=== PATIENT | male | born 1985 | race Caucasian/White ===

== ENCOUNTER 2021-11-22 08:04 | Emergency (ER) | payer OTHER, SELFPAY ==
[2021-11-22 08:11] VITALS: BP 148/96; PULSE 68; RESP 18; TEMP 36.6; O2SAT 98
--- NOTE | 2021-11-22 08:15 | ED.URI ---
HPI - URI/Sore Throat General Chief Complaint: Upper Respiratory Infection Stated Complaint: Sinus Pain/Cough Time Seen by Provider: 11/22/21 08:15 Source: patient, RN notes reviewed and old records reviewed Mode of arrival: ambulatory Limitations: no limitations History of Present Illness HPI Narrative: 36 year old male who presents to [facility] care with complaints of 2.5 weeks of sinus congestion, sinus pressure, yellow greenish drainage, some headache discomfort. He states that he had a migraine when his symptoms first started that lasted a day then he proceeded to develop sinus symptoms. Patient states that cough is mainly in the morning. Patient reports that he has been taking some Sudafed for his symptoms with no improvement. He reports that he has had COVID immunizations and Flu shot this season.Patient states that he has also been taking DayQuil and NyQuil for his symptoms. He took a home COVID test yesterday which was negative. MD elicited complaint: nasal congestion Pertinent past history: sinusitis Onset (ago): week(s) (2.5 weeks) Consistency: progressively worsening Related Data Home Medications Medication Instructions Recorded Confirmed atorvastatin 40 mg PO DAILY 11/22/21 11/22/21 testosterone cypionate 100 mg IM MONTHLY 11/22/21 11/22/21 topiramate 50 mg PO DAILY 11/22/21 11/22/21 Allergies Allergy/AdvReac Type Severity Reaction Status Date / Time Sulfa (Sulfonamide Allergy Intermediate Redness of Verified 11/22/21 08:21 Antibiotics) Skin Review of Systems Review of Systems: CONSTITUTIONAL: Denies fever, chills, or sweats. EYES: Denies visual changes, redness, or discharge. ENT: Positive for rhinorrhea, congestion, sore throat, or otalgia.sinus pressure CARDIOVASCULAR: Denies chest pain, palpitations, or edema. RESPIRATORY: Positive for cough denies dyspnea. GASTROINTESTINAL: Denies abdominal pain, nausea, vomiting, or diarrhea. GENITOURINARY: Denies dysuria or hematuria. SKIN: Denies rash or itching. MUSCULOSKELETAL: Denies back pain, joint pain, or myalgia. NEUROLOGIC: Positive for frontal head pressure, no numbness, or weakness. PSYCHIATRIC: Denies anxiety or depression. 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 There is no relevant family history pertinent to the presenting complaint Exam Narrative: GENERAL: Well-appearing, well-nourished, and in no acute distress. HEAD: Normocephalic, atraumatic. EYES: PERRLA and EOMI. ENT: Nares red with turbinates swollen, yellow tinged rhinorrhea no epistaxis. Mucous membranes moist.TM's normal with good light reflex, throat red with no lesions or exudates, no tonsil swelling. NECK: Supple.no lymphadenopathy CHEST: Clear to auscultation. No respiratory distress.SAO2 98% on room air HEART: Regular rate and rhythm. No murmur heard. Normal peripheral pulses. ABDOMEN: Soft, nontender, nondistended, normal active bowel sounds. EXTREMITIES: Normal range of motion. No edema. SKIN: Warm, dry, no rash. NEURO: No focal deficits. Alert and oriented x3. Course Course Level of Care: Express Care Visit Vital Signs Vital signs: Vital Signs Temperature 36.6 C 11/22/21 08:11 Pulse Rate 68 11/22/21 08:11 Respiratory Rate 18 11/22/21 08:11 Blood Pressure 148/96 H 11/22/21 08:11 Pulse Oximetry 98 11/22/21 08:11 Temperature 36.6 C 11/22/21 08:11 Pulse Rate 68
== END 2021-11-22 08:30 | disposition home or self-care (01) ==
PROVIDERS: Emergency Provider Registered Nurse
DX: J01.40 Acute pansinusitis, unspecified (principal); E78.00 Pure hypercholesterolemia, unspecified
CPT/HCPCS: 99213; G0463